=== PATIENT | female | born 1980 | race Two or more races ===

== ENCOUNTER 2024-06-14 12:21 | Emergency (ER) | payer MEDICAID, OTHER ==
[~2024-06-14] VITALS: Ht 165.1 cm; Wt 79.3 kg
[2024-06-14] MEDS: ASPirin 81 mg TAB PO ONE (13:02)
--- NOTE | 2024-06-14 13:06 | ED.PDOC ---
History of Present Illness HPI Comments 43F presents to the Er w/ no prior Hx associated to the c/c of CP. Pt reports on having Left sided CP which feels like its "pully" and radiates to the back all for the past 2 weeks. Pt states on having a pain type of a 7/10. SHx of C- sectionx3 and Hysterectomy. Social Hx of occasional alcohol use, but denies tobacco and substance use. Denies chills, fever, N/V/D, SOB, or other associated symptom's, modifiers, or recent injuries or sick contact at this time. Chief Complaint: Abdominal Pain Time Seen by MD: 12:45 Primary Care Provider: rosalva Reviewed Notes: Nurses Notes, Medications, Allergies (No allergies to medications) Allergies: Coded Allergies: Penicillins (Verified Allergy, Mild, 06/14/24) Information Source: Patient Mode of Arrival: Ambulatory Severity: Moderate Timing: Weeks Duration: Since onset Prehospital treatment: None Associated signs and symptoms Generalized weakness, atypical chest pain Past Medical History PAST MEDICAL HISTORY: Denies Surgical History: (x3), Hysterectomy PARAGLIDING INSTRUCTOR History: No Pertinent PARAGLIDING INSTRUCTOR History Family History Family History: Reviewed,noncontributory to illness, Family hx of DM, Family hx of heart aminata Social History Smoker: Non-Smoker Alcohol: Occasionally Drugs: Denies Drug Use Lives In: Home Constitutional: denies: chills, diaphoresis, fatigue, fever, malaise, sweats, weakness, others EENTM: denies: blurred vision, double vision, ear bleeding, ear discharge, ear drainage, ear pain, ear ringing, eye pain, eye redness, hearing loss, mouth pain, mouth swelling, nasal discharge, nose bleeding, nose congestion, nose pain, photophobia, tearing, throat pain, throat swelling, voice changes, others Respiratory: denies: cough, hemoptysis, orthopnea, SOB at rest, shortness of breath, SOB with excertion, stridor, wheezing, others Cardiovascular: reports: chest pain; denies: dizzy spells, diaphoresis, Dyspnea on exertion, edema, irregular heart beat, left arm pain, lightheadedness, palpitations, PND, syncope, others Gastrointestinal: denies: abdomen distended, abdominal pain, blood streaked bowels, constipated, diarrhea, dysphagia, difficulty swallowing, hematemesis, melena, nausea, poor appetite, poor fluid intake, rectal bleeding, rectal pain, vomiting, others Genitourinary: denies: abnormal vagina bleeding, burning, dyspareunia, dysuria, flank pain, frequency, hematuria, incontinence, pain, , vagina discharge, urgency, others Neurological: denies: dizziness, fainting, headache, left sided numbness, left sided weakness, numbness, paresthesia, pre-existing deficit, right sided numbness, right sided weakness, seizure, speech problems, tingling, tremors, weakness, others Musculoskeletal: reports: back pain; denies: gout, joint pain, joint swelling, muscle pain, muscle stiffness, neck pain, others Integumetry: denies: bruises, change in color, change in hair/nails, dryness, laceration, lesions, lumps, rash, wounds, others Allergic/Immunocompromised: denies: Difficulty Healing, Frequent Infections, Hives, Itching, others Hematologic/Lymphatic: denies: anemia, blood clots, easy bleeding, easy bruising, swollen glands, others Endocrine: denies: excessive hunger, excessive sweating, excessive thirst, excessive urination, flushing, intolerance to cold, intolerance to heat, unexplained weight gain, unexplained weight loss, others Psychiatric: denies: anxiety, bipolar disorder, depression, hopeless, panic disorder, schizophrenia, sleepless, suicidal, others All Other Systems: Reviewed and Negative Physical Exam General Appearance: No Apparent Distress HEENT: Normal ENT Inspection, Pharynx Normal, TMs Normal Neck: Full Range of Motion, Non-Tender, Normal, Normal Inspection Respiratory: Lungs Clear, No Accessory Muscle Use, No Respiratory Distress, Normal Breath Sounds, Other (There is some tenderness to the left chest area) Cardiovascular: No Edema, No JVD, No Murmur, No Gallop, Normal Peripheral Pulses, Regular Rate/Rhythm Breast Exam: Deferred Gastrointestinal: No Organomegaly, Non Tender, No Pulsatile Mass, Normal Bowel Sounds, Soft Genitalia: Deferred Pelvic: Deferred Rectal: Deferred Extremities: No calf tenderness, Normal capillary refill, Normal inspection, Normal range of motion, Non-tender, No pedal edema Musculoskeletal : Apperance: Normal Neurologic: Alert, animal laboratory technician II-XII nml as Tested, No Motor Deficits, Normal Affect, Normal Mood, No Sensory Deficits Cerebellar Function: Normal Reflexes: Normal Skin: Dry, Normal Color, Warm Lymphatic: No Adenopathy Was a procedure done? Was a procedure done?: No EKG EKG : Pulse Rate (adult): 118 [place]: Normal Cardiac Rhythm: ST Block: None Hypertrophy: None ST: Normal Differential Dx Considerations may include: Musculoskeletal chest pain, pneumothorax, ACS, [place] X-Ray, Labs, Meds, VS Vital Signs Date Time Temp Pulse Resp B/P (MAP) Pulse Ox O2 Delivery O2 Flow Rate FiO2 06/14/24 13:28 114 17 97 Room Air 06/14/24 13:28 97.9 114 17 137/92 (107) 97 97.9 06/14/24 13:07 118 06/14/24 12:45 118 06/14/24 12:42 98.3 130 20 155/85 (108) 98 Lab Test 06/14/24 14:08 06/14/24 13:47 06/14/24 13:08 Range/Units Troponin I High Sensitivity < 3 L < 3 L </=34 ng/L Urine Color Yellow Yellow Urine Clarity Turbid H Clear Urine pH 6.0 5.0-9.0 Urine Specific [place] 1.028 1.001-1.035 Urine Protein Trace H Negative Urine Ketones Negative Negative Urine Blood Negative Negative /uL Urine Nitrite Negative Negative Urine Bilirubin Negative Negative Urine Urobilinogen 3 H Negative mg/dL Urine Leukocyte Esterase Negative Negative /uL Urine RBC 6 0 - 4 /hpf Urine Microscopic WBC 2 0-5 /HPF Urine Squamous Epithelial Cells Mod <5 /hpf Urine Bacteria None seen None Seen /hpf Urine Mucus Few None Seen Urine Glucose Normal Normal mg/dL White Blood Count 7.3 4.4-10.8 10^3/uL Red Blood Count 6.10 H 4.0-5.20 10^6/uL Hemoglobin 13.3 12.2-16.2 g/dL Hematocrit 42.1 36.0-46.0 % Mean Corpuscular Volume 69.0 L 80.0-100.0 fL Mean Corpuscular Hemoglobin 21.8 L 28.0-32.0 pg Mean Corpuscular Hemoglobin Concent 31.6 L 32.0-36.0 g/dL Red Cell Distribution Width 15.7 H 11.8-14.3 % Platelet Count 306 140-450 10^3/uL Mean Platelet Volume 10.1 6.9-10.8 fL Neutrophils (%) (Auto) 59.6 37.0-80.0 % Lymphocytes (%) (Auto) 34.5 10.0-50.0 % Monocytes (%) (Auto) 4.1 0.0-12.0 % Eosinophils (%) (Auto) 1.4 0.0-7.0 % Basophils (%) (Auto) 0.4 0.0-2.0 % Neutrophils # (Auto) 4.3 1.6-8.6 10 ^3/uL Lymphocytes # (Auto) 2.5 0.4-5.4 10 ^3/uL Monocytes # (Auto) 0.3 0-1.3 10 ^3/uL Eosinophils # (Auto) 0.1 0-0.8 10 ^3/uL Basophils # (Auto) 0 0-0.2 10 ^3/uL Nucleated Red Blood Cells 0.2 % D-Dimer, Quantitative 0.28 0.0-0.49 mg/L FEU Sodium Level 140 136-145 mmol/L Potassium Level 3.6 3.5-5.1 mmol/L Chloride Level 105 98-107 mmol/L Carbon Dioxide Level 27 20-31 mmol/L Anion Gap 8 5-15 Blood Urea Nitrogen 8 L 9-23 mg/dL Creatinine 0.87 0.550-1.02 mg/dL Glomerular Filtration Rate Calc 84 >90 mL/min BUN/Creatinine Ratio 9.2 L 10.0-20.0 Serum Glucose 83 74-106 mg/dL Calcium Level 10.3 8.7-10.4 mg/dL Current Medications Medications (Trade) Dose Ordered Sig/Mi Route Start Time Stop Time Status Last Admin Aspirin 162 mg ONCE ONCE PO 06/14/24 13:00 06/14/24 13:01 DC 06/14/24 13:02 The patient's CBC is within normal limits The chemistry panel is within normal limits The urine test is negative for infection The troponin level x2 is negative The patient was being discharged and will follow up primary care doctor The patient will return to the emergency department's condition worsens. Images Reviewed?: Images reviewed and evaluated by me Time of 1ST Reevaluation: 13:15 Reevaluation 1ST: Unchanged Patient Education/Counseling: Diagnosis, Treatment, Prognosis, Need For Follow Up Family Education/Counseling: No Family Present Departure 1 Departure Time of Disposition: 15:55 Impression: Primary Impression: Musculoskeletal pain Disposition: 01 HOME / SELF CARE / HOMELESS Condition: Fair Discharged With: Self Critical Care Note Critical Care Time?: No Stability Stability form required: No Heart Score Heart Score: Heart Score Response (Comments) Value History Slightly Suspicious 0 EKG Normal 0 Age <45 0 Risk Factors N/A 0 Troponin N/A 0 Total 0 I personally scribed for HIEU GUDINO MD ([email or web address]) on 06/14/24 at 13:06. Electronically submitted by Brendan Sun ([email or web address]). I personally scribed for HIEU GUDINO MD ([email or web address]) on 06/14/24 at 13:07. Electronically submitted by Brendan Sun ([email or web address]). HIEU GUDINO MD Jun 14, 2024 13:06
--- NOTE | 2024-06-14 13:08 | DVH ---
EXAM: XY CHEST TWO VIEWS ROUTINE CLINICAL HISTORY: CP COMPARISON: None TECHNIQUE: Frontal and lateral view of the chest was obtained FINDINGS: Lines and Tubes: None Lungs: No focal consolidation. Pleura: No effusion. No pneumothorax. Cardiomediastinal contours: Unremarkable Pulmonary vasculature: Within normal limits. Bones: No acute osseous abnormality. IMPRESSION: 1. No acute cardiopulmonary disease. HS:Y
[2024-06-14 13:49] LABS: Urine Bacteria None Seen /hpf (None Seen)
[2024-06-14 13:53] LABS: Basophils # (auto) 0 10 ^3/uL (0-0.2); Basophils % (auto) 0.4 % (0.0-2.0); Eosinophils # (auto) 0.1 10 ^3/uL (0-0.8); Eosinophils % (auto) 1.4 % (0.0-7.0); Hematocrit 42.1 % (36.0-46.0); Hemoglobin 13.3 g/dL (12.2-16.2); Lymphocytes # (auto) 2.5 10 ^3/uL (0.4-5.4); Lymphocytes % (auto) 34.5 % (10.0-50.0); Mean Corpuscular Hemoglobin 21.8 pg (28.0-32.0); Mean Corpuscular Hgb Conc. 31.6 g/dL (32.0-36.0); Monocytes # (auto) 0.3 10 ^3/uL (0-1.3); Monocytes % (auto) 4.1 % (0.0-12.0); Neutrophils # (auto) 4.3 10 ^3/uL (1.6-8.6); Neutrophils % (auto) 59.6 % (37.0-80.0); Nucleated Red Blood Cells % 0.2 %; Platelet Count (auto) 306 10^3/uL (140-450); Red Cell Distribution Width 15.7 % (11.8-14.3); White Blood Cell 7.3 10^3/uL (4.4-10.8)
[2024-06-14 14:00] LABS: Chloride 105 mmol/L (98-107); Potassium 3.6 mmol/L (3.5-5.1); Sodium 140 mmol/L (136-145)
[2024-06-14 14:01] LABS: Anion Gap 8 (5-15); Calcium 10.3 mg/dL (8.7-10.4); Carbon Dioxide 27 mmol/L (20-31)
[2024-06-14 14:06] LABS: BUN/Creatinine Ratio 9.2 (10.0-20.0); Blood Urea Nitrogen 8 mg/dL (9-23); Glucose 83 mg/dL (74-106)
[2024-06-14 14:15] LABS: Urine Blood Negative /uL (Negative); Urine Clarity Turbid (Clear); Urine Color Yellow (Yellow); Urine Mucus FEW (None Seen); Urine Protein, UAD TRACE (Negative); Urine Specific Gravity 1.028 (1.001-1.035); Urine Squamous Epithelial Cell MOD /hpf (<5); Urine Urobilinogen 3 mg/dL (Negative); Urine WBC 2 /HPF (0-5)
[2024-06-14 17:25] VITALS: BP 158/73; PULSE 100; RESP 16; TEMP 97.8; O2SAT 100
--- NOTE | 2024-06-18 14:33 | ECG ---
[facility] Test Date: 2024-06-14 Test Time: 12:45:24 Pat Name: RADHA RENTERIA Department: ER Room: Gender: F Academic Affairs Vice President: MICHAEL : 1980 Requested By: HIEU GUDINO Order Number: [id number] Reading MD: Measurements Intervals [place] Rate: 118 P: 89 SD: 130 QRS: 81 QRSD: 74 T: -7 QT: 293 QTc: 411 Interpretive Statements Sinus tachycardia Borderline repolarization abnormality Baseline wander in lead(s) V4,V5 Please click the below link to view image of tracing.
== END 2024-06-14 17:34 | disposition home or self-care (01) ==
LOC: ER 12:21
DX: R07.89 Other chest pain (principal); Z90.710 Acquired absence of both cervix and uterus; Z98.890 Other specified postprocedural states; Z88.0 Allergy status to penicillin
CPT/HCPCS: 36415; 71046; 80048; 81001; 84484; 85025; 85379; 93005

== ENCOUNTER 2024-10-06 12:26 | Emergency (ER) | payer MEDICAID ==
[~2024-10-06] VITALS: Ht 165.1 cm; Wt 77.5 kg
--- NOTE | 2024-10-06 12:41 | ED.PDOC ---
GI ASSESSMENT HPI Comments 44 year old female presents to the ED with a chief complaint of abdominal pain onset 5 days. Patient has been experiencing abdominal pain, RUQ radiating to epigastric region as well as nausea, vomiting, diarrhea. Denies any PMHx as well as recent travel, chest pain, shortness of breath, cough, congestion, sore throat, fevers, chills, dysuria, hematuria, dizziness, headache. No other symptoms or modifying factors present at this time. Chief Complaint: Nausea/Vomiting Time Seen by MD: 12:35 Primary Care Provider: rosalva Reviewed Notes: Medications, Allergies Allergies: Coded Allergies: Penicillins (Verified Allergy, Mild, 06/14/24) Information Source: Patient Timing: Days Duration: Since onset Prehospital treatment: None Quality: Sharp Severity: Moderate Recent: None Recent Hx of: None Pain Location: Epigastric, RUQ Modifying Factors: Nothing Associated sign and symptoms: Nausea, Vomiting, Diarrhea, Abdominal Pain Past Medical History PAST MEDICAL HISTORY: Denies Surgical History: , Hysterectomy RECREATIONAL FACILITIES MOTEL MANAGER History: No Pertinent RECREATIONAL FACILITIES MOTEL MANAGER History Family History Family History: Reviewed,noncontributory to illness, Family hx of DM, Family hx of heart aminata Social History Smoker: Non-Smoker Alcohol: Occasionally Drugs: Denies Drug Use Lives In: Home Constitutional: denies: chills, diaphoresis, fatigue, fever, malaise, sweats, weakness, others EENTM: denies: blurred vision, double vision, ear bleeding, ear discharge, ear drainage, ear pain, ear ringing, eye pain, eye redness, hearing loss, mouth pain, mouth swelling, nasal discharge, nose bleeding, nose congestion, nose pain, photophobia, tearing, throat pain, throat swelling, voice changes, others Respiratory: denies: cough, hemoptysis, orthopnea, SOB at rest, shortness of breath, SOB with excertion, stridor, wheezing, others Cardiovascular: denies: chest pain, dizzy spells, diaphoresis, Dyspnea on exertion, edema, irregular heart beat, left arm pain, lightheadedness, palpitations, PND, syncope, others Gastrointestinal: reports: abdominal pain, diarrhea, nausea, vomiting; denies: abdomen distended, blood streaked bowels, constipated, dysphagia, difficulty swa llowing, hematemesis, melena, poor appetite, poor fluid intake, rectal bleeding, rectal pain, others Genitourinary: denies: abnormal vagina bleeding, burning, dyspareunia, dysuria, flank pain, frequency, hematuria, incontinence, pain, , vagina discharge, urgency, others Neurological: denies: dizziness, fainting, headache, left sided numbness, left sided weakness, numbness, paresthesia, pre-existing deficit, right sided numbness, right sided weakness, seizure, speech problems, tingling, tremors, weakness, others Musculoskeletal: denies: back pain, gout, joint pain, joint swelling, muscle pain, muscle stiffness, neck pain, others Integumetry: denies: bruises, change in color, change in hair/nails, dryness, laceration, lesions, lumps, rash, wounds, others Allergic/Immunocompromised: denies: Difficulty Healing, Frequent Infections, Hives, Itching, others Hematologic/Lymphatic: denies: anemia, blood clots, easy bleeding, easy bruising, swollen glands, others Endocrine: denies: excessive hunger, excessive sweating, excessive thirst, excessive urination, flushing, intolerance to cold, intolerance to heat, un explained weight gain, unexplained weight loss, others Psychiatric: denies: anxiety, bipolar disorder, depression, hopeless, panic disorder, schizophrenia, sleepless, suicidal, others All Other Systems: Reviewed and Negative Physical Exam General Appearance: Normal HEENT: Normal ENT Inspection, Pharynx Normal, TMs Normal Neck: Full Range of Motion, Non-Tender, Normal, Normal Inspection Respiratory: Chest Non-Tender, Lungs Clear, No Accessory Muscle Use, No Respiratory Distress, Normal Breath Sounds Cardiovascular: No Edema, No JVD, No Murmur, No Gallop, Tachycardia Breast Exam: Deferred Gastrointestinal: No Organomegaly, Tenderness (Mild, to RUQ radiating to epigastric. diminished bowel sounds) Genitalia: Deferred Pelvic: Deferred Rectal: Deferred Extremities: No calf tenderness, Normal capillary refill, Normal inspection, Normal range of motion, Non-tender, No pedal edema Musculoskeletal : Apperance: Normal Neurologic: Alert, packager hand II-XII nml as Tested, No Motor Deficits, Normal Affect, Normal Mood, No Sensory Deficits Cerebellar Function: Normal Reflexes: Normal Skin: Dry, Normal Color, Warm Lymphatic: No Adenopathy Was a procedure done? Was a procedure done?: No GI differential Dx Differential Diagnosis: Appendicitis, Complete , Incomplete , Inevitable , Missed , Threatened , Abruptio placentae, Bowel Obstruction, Constipation, Diverticular disease, Dysmenorrhea, Ectopic , Gastritis/PUD, Gastroenteritis, GI hemorrhage, Hernia, Hepatitis, Inflammatory BD, Ischemic Bowel, Ovarian cyst/torsion, Urinary Obstruction, UTI, Urolithiasis, , Viral, Impaction, Mass, Stress Ulcer, Kidney Stone X-Ray, Labs, Meds, VS Vital Signs Date Time Temp Pulse Resp B/P (MAP) Pulse Ox O2 Delivery O2 Flow Rate FiO2 10/06/24 14:08 65 16 157/93 10/06/24 13:48 98.4 115 18 157/93 (114) 98 98.4 10/06/24 13:43 12 100 Room Air* 0 21 10/06/24 12:31 98.2 111 16 173/87 (115) 98 98.2 Lab Test 10/06/24 12:55 10/06/24 12:35 Range/Units White Blood Count 5.7 4.4-10.8 10^3/uL Red Blood Count 6.25 H 4.0-5.20 10^6/uL Hemoglobin 13.7 12.2-16.2 g/dL Hematocrit 43.5 36.0-46.0 % Mean Corpuscular Volume 69.7 L 80.0-100.0 fL Mean Corpuscular Hemoglobin 21.9 L 28.0-32.0 pg Mean Corpuscular Hemoglobin Concent 31.4 L 32.0-36.0 g/dL Red Cell Distribution Width 15.1 H 11.8-14.3 % Platelet Count 272 140-450 10^3/uL Mean Platelet Volume 9.4 6.9-10.8 fL Neutrophils (%) (Auto) 45.0 37.0-80.0 % Lymphocytes (%) (Auto) 49.0 10.0-50.0 % Monocytes (%) (Auto) 3.5 0.0-12.0 % Eosinophils (%) (Auto) 1.8 0.0-7.0 % Basophils (%) (Auto) 0.7 0.0-2.0 % Neutrophils # (Auto) 2.6 1.6-8.6 10 ^3/uL Lymphocytes # (Auto) 2.8 0.4-5.4 10 ^3/uL Monocytes # (Auto) 0.2 0-1.3 10 ^3/uL Eosinophils # (Auto) 0.1 0-0.8 10 ^3/uL Basophils # (Auto) 0 0-0.2 10 ^3/uL Nucleated Red Blood Cells 0.1 % Sodium Level 140 136-145 mmol/L Potassium Level 3.2 L 3.5-5.1 mmol/L Chloride Level 106 98-107 mmol/L Carbon Dioxide Level 24 20-31 mmol/L Anion Gap 10 5-15 Blood Urea Nitrogen < 5 L 9-23 mg/dL Creatinine 0.96 0.550-1.02 mg/dL Glomerular Filtration Rate Calc 74 >90 mL/min BUN/Creatinine Ratio 5.2 L 10.0-20.0 Serum Glucose 120 H 74-106 mg/dL Calcium Level 9.2 8.7-10.4 mg/dL Total Bilirubin 0.3 0.2-1.0 mg/dL Aspartate Amino Transferase (AST) 17 <34 U/L Alanine Aminotransferase (ALT) 42 H 7-40 U/L Alkaline Phosphatase 93 46-116 U/L Total Protein 7.6 5.7-8.2 g/dL Albumin 4.4 3.2-4.8 g/dL Lipase 38 12-53 U/L Urine Color Yellow Yellow Urine Clarity Turbid H Clear Urine pH 6.0 5.0-9.0 Urine Specific [place] 1.037 H 1.001-1.035 Urine Protein 1+ H Negative Urine Ketones Negative Negative Urine Blood Trace H Negative /uL Urine Nitrite Negative Negative Urine Bilirubin Negative Negative Urine Urobilinogen Normal Negative mg/dL Urine Leukocyte Esterase Negative Negative /uL Urine RBC 10 0 - 4 /hpf Urine Microscopic WBC 5 0-5 /HPF Urine Squamous Epithelial Cells Mod <5 /hpf Urine Bacteria None seen None Seen /hpf Urine Mucus Few None Seen Urine Glucose Normal Normal mg/dL Urine Test Negative Negative POC Glucose 136 H 70-106 mg/dl Current Medications Medications (Trade) Dose Ordered Sig/Mi Route Start Time Stop Time Status Last Admin Sodium Chloride 1,000 ml @ 1,000 mls/hr Q1H ONCE IV 10/06/24 12:45 10/06/24 13:44 DC 10/06/24 13:39 Ondansetron HCl (Zofran) 4 mg ONCE ONCE IV 10/06/24 12:45 10/06/24 12:47 DC 10/06/24 12:45 Morphine Sulfate 2 mg ONCE ONCE IV 10/06/24 14:15 10/06/24 14:16 DC 10/06/24 14:08 Time of 1ST Reevaluation: 13:05 Reevaluation 1ST: Unchanged Time of 2ND Reevaluation: 14:18 Reevaluation 2ND: Improved Patient Education/Counseling: Diagnosis, Treatment, Prognosis, Need For Follow Up Family Education/Counseling: No Family Present Additional Information The following tests were ordered, and results were reviewed by me: CBC, CMP,LIPASE, UA, PREGUA, CT ABD PEL WO CON I reviewed and agreed with the following test results read by other providers: CT ABD PEL WO CON I discussed treatment and results with medical personnel and: patient Comprehensive systems review obtained and negative except for what is stated in the HPI. pt is feeling better. workup is unremarkable. pt is stable for discharge SEPSIS Sepsis Screen Physician Orders Ct Ab Pel Wo Con-No Oral Or Iv (10/06/24 12:38) Potassium Er Tablet (Klor-Con Tablet) (10/06/24 14:15) Vital Signs Date Time Temp Pulse Resp B/P (MAP) Pulse Ox O2 Delivery O2 Flow Rate FiO2 10/06/24 14:08 65 16 157/93 10/06/24 13:48 98.4 115 18 157/93 (114) 98 98.4 10/06/24 13:43 12 100 Room Air* 0 21 10/06/24 12:31 98.2 111 16 173/87 (115) 98 98.2 Laboratory Tests Test 10/06/24 12:55 White Blood Count 5.7 10^3/uL (4.4-10.8) Medications Medications Dose Ordered Sig/Mi Route Start Time Stop Time Status Last Admin Dose Admin Morphine Sulfate 2 mg ONCE ONCE IV 10/06/24 14:15 10/06/24 14:16 DC 10/06/24 14:08 Ondansetron HCl 4 mg ONCE ONCE IV 10/06/24 12:45 10/06/24 12:47 DC 10/06/24 12:45 Sodium Chloride 1,000 ml @ 1,000 mls/hr Q1H ONCE IV 10/06/24 12:45 10/06/24 13:44 DC 10/06/24 13:39 Departure 1 Departure Time of Disposition: 14:19 Impression: Primary Impression: Abdominal pain Qualified Codes: R10.11 - Right upper quadrant pain Disposition: 01 HOME / SELF CARE / HOMELESS Condition: Good e-Prescriptions Ondansetron Odt 4MG Tab (ZOFRAN PO) 4 Mg Tb 4 MG PO Q4HP PRN for 2 Days, #10 TAB ODT TAB-DISSOLVE IN MOUTH, THEN SWALLOW Prov: RAMIN WOODSON MD 10/06/24 Discharged With: Self Critical Care Note Critical Care Time?: No Stability Stability form required: No I personally scribed for RAMIN WOODSON MD ([email or web address]) on 10/06/24 at 12:41. Electronically submitted by Carol Bains ([email or web address]). I personally scribed for RAMIN WOODSON MD ([email or web address]) on 10/06/24 at 12:43. Electronically submitted by Carol Bains ([email or web address]). RAMIN WOODSON MD Oct 06, 2024 12:41
[2024-10-06] MEDS: ONDANSETRON HCL 4 MG/2 ML VIAL IV ONE (12:45)
[2024-10-06 12:49] LABS: Urine Bacteria None Seen /hpf (None Seen)
[2024-10-06 12:56] LABS: Urine Blood TRACE /uL (Negative); Urine Clarity Turbid (Clear); Urine Color Yellow (Yellow); Urine Mucus FEW (None Seen); Urine Protein, UAD 1+ (Negative); Urine Specific Gravity 1.037 (1.001-1.035); Urine Squamous Epithelial Cell MOD /hpf (<5); Urine Urobilinogen Normal (Negative); Urine WBC 5 /HPF (0-5)
[2024-10-06 13:08] LABS: Basophils # (auto) 0 10 ^3/uL (0-0.2); Eosinophils # (auto) 0.1 10 ^3/uL (0-0.8); Hemoglobin 13.7 g/dL (12.2-16.2); Lymphocytes # (auto) 2.8 10 ^3/uL (0.4-5.4); Mean Corpuscular Volume 69.7 fL (80.0-100.0); Monocytes # (auto) 0.2 10 ^3/uL (0-1.3); Nucleated Red Blood Cells % 0.1 %; White Blood Cell 5.7 10^3/uL (4.4-10.8)
[2024-10-06 13:10] LABS: Basophils % (auto) 0.7 % (0.0-2.0); Eosinophils % (auto) 1.8 % (0.0-7.0); Hematocrit 43.5 % (36.0-46.0); Mean Corpuscular Hemoglobin 21.9 pg (28.0-32.0); Mean Corpuscular Hgb Conc. 31.4 g/dL (32.0-36.0); Monocytes % (auto) 3.5 % (0.0-12.0); Neutrophils # (auto) 2.6 10 ^3/uL (1.6-8.6); Platelet Count (auto) 272 10^3/uL (140-450); Red Blood Cells 6.25 10^6/uL (4.0-5.20); Red Cell Distribution Width 15.1 % (11.8-14.3)
[2024-10-06 13:23] LABS: Albumin 4.4 g/dL (3.2-4.8); Alkaline Phosphatase 93 U/L (46-116); Anion Gap 10 (5-15); Aspartate Aminotransferase 17 U/L (<34); Calcium 9.2 mg/dL (8.7-10.4); Carbon Dioxide 24 mmol/L (20-31); Chloride 106 mmol/L (98-107); Lipase 38 U/L (12-53); Sodium 140 mmol/L (136-145); Total Protein 7.6 g/dL (5.7-8.2)
[2024-10-06] MEDS: SODIUM CHLORIDE 0.9% 1,000 ML IV ONE (13:39)
[2024-10-06 13:43] VITALS: RESP 12; O2SAT 100
--- NOTE | 2024-10-06 13:49 | DVH ---
CT CT AB PEL WO CON-NO ORAL OR IV INDICATION: abdominal pain EXAM DATE: 10/06/2024 12:54 PM COMPARISON: None RADIATION DOSE: CTDIvol: 9.55 mGy, DLP: 506.24 mGy*cm PROCEDURE: Helical CT images were obtained of the abdomen and pelvis without IV contrast Sagittal and coronal reconstructions are provided. ORAL CONTRAST: None. ADDITIONAL IMAGES / REFORMATS: None All C T scans at this medical facility are performed using dose modulation techniques as appropriate to a p erformed exam including the following: Automated exposure control was utilized; adjustment of the MA and/or KV according to patient size; and use of iterative reconstruction technique. FINDINGS: LUNG BASE: Normal. LIVER: Normal. GALLBLADDER AND BILIARY TREE: No calcified gallstones. Normal caliber wall. No intra- or extrahepatic biliary ductal dilation. PANCREAS: Normal. SPLEEN: Normal. BOWEL: Normal. Normal appendix. ADRENALS: Normal. KIDNEYS AND URETER: Normal. BLADDER: Normal. REPRODUCTIVE ORGANS: Absent uterus. LYMPH NODES:No lymphadenopathy. PERITONEUM: No ascites or free air. No other fluid collection. VESSELS: Scattered atherosclerotic calcifications are noted. RETROPERITONEUM: Normal. ABDOMINAL WALL: Normal. BONES: Scattered osseous degenerative changes are noted. IMPRESSION: No acute intraabdominal abnormality. Normal appendix.
[2024-10-06] MEDS ORDERED: MORPHINE SULFATE INJ 2 MG/ml SYRG IV ONE (14:00)
[2024-10-06 14:01] LABS: Glucose 120 mg/dL (74-106); Potassium 3.2 mmol/L (3.5-5.1)
[2024-10-06 14:02] LABS: Alanine Aminotransferase 42 U/L (7-40); BUN/Creatinine Ratio 5.2 (10.0-20.0); Bilirubin, Total 0.3 mg/dL (0.2-1.0); Blood Urea Nitrogen < 5 mg/dL (9-23)
[2024-10-06] MEDS: MORPHINE SULFATE 4 MG/ML SYR/VIAL IV ONE (14:08)
[2024-10-06] MEDS ORDERED: ZOFR4T PO (14:20)
[2024-10-06] MEDS: POTASSIUM CHL 20 Meq TABLET PO ONE (14:49)
[2024-10-06 14:52] VITALS: BP 143/67; PULSE 94; RESP 18; TEMP 97.7; O2SAT 98
== END 2024-10-06 15:03 | disposition home or self-care (01) ==
LOC: ER 12:26
DX: R10.11 Right upper quadrant pain (principal); Z90.710 Acquired absence of both cervix and uterus; Z88.0 Allergy status to penicillin; Z79.899 Other long term (current) drug therapy
CPT/HCPCS: 36415; 74176; 80053; 81001; 81025; 82947; 83690; 85025; 96361; 96374; 96375; 99285; J2270; J2405; J7030; 82962

== ENCOUNTER 2025-01-09 15:23 | Emergency (ER) | payer MEDICAID ==
[~2025-01-09] VITALS: Ht 165.1 cm; Wt 79.2 kg
[~2025-01-09 15:23] MED LIST: ZOFR4T PO
--- NOTE | 2025-01-09 16:03 | ED.PDOC ---
GI ASSESSMENT HPI Comments 44 y/o F, with no prior medical history presents to the ED for CC of abdominal pain due to constipation. Patient states, she has been experiencing right-sided abdominal pain that radiates to her right flank x five days due to what she believes is constipation concerns. Patient states no bowel movement during that time. Patient denies dysuria, vaginal discharge, urinary frequency, fever, nausea, or vomiting. No other symptoms or modifying factors are present at this time. Chief Complaint: Abdominal Pain Time Seen by MD: 15:10 Primary Care Provider: ELLEN Reviewed Notes: Nurses Notes, Medications, Allergies Allergies: Coded Allergies: Penicillins (Verified Allergy, Mild, 06/14/24) Home Meds Active Scripts Docusate Sodium (Colace) 100 Mg Cap, 1 CAP PO BIDP PRN, #20 CAP Prov:KHADAR SNIDER PAC 01/09/25 Lactulose (Lactulose) 10 Gm/15 Ml Kelsi, 10 GM PO BID, #150 ML Prov:KHADAR SNIDER PAC 01/09/25 Ondansetron Odt 4MG Tab (ZOFRAN PO) 4 Mg Tb, 4 MG PO Q4HP PRN for 2 Days, #10 TAB ODT TAB-DISSOLVE IN MOUTH, THEN SWALLOW Prov:RAMIN WOODSON MD 10/06/24 Information Source: Patient Mode of Arrival: Ambulatory Timing: Days Duration: Since onset Prehospital treatment: None Quality: Cramping, Sharp, None Vomitus: None Stool: Other (Constipated) Severity: Moderate Recent: None Recent Hx of: None Pain Location: RUQ, RLQ Modifying Factors: Nothing Associated sign and symptoms: Constipation, Abdominal Pain Past Medical History PAST MEDICAL HISTORY: Denies Surgical History: , Hysterectomy [employer] History: No Pertinent [employer] History Family History Family History: Reviewed,noncontributory to illness, Family hx of DM, Family hx of heart aminata Social History Smoker: Non-Smoker Alcohol: Occasionally Drugs: Denies Drug Use Lives In: Home Constitutional: denies: chills, diaphoresis, fatigue, fever, malaise, sweats, weakness, others EENTM: denies: blurred vision, double vision, ear bleeding, ear discharge, ear drainage, ear pain, ear ringing, eye pain, eye redness, hearing loss, mouth pain, mouth swelling, nasal discharge, nose bleeding, nose congestion, nose pain, photophobia, tearing, throat pain, throat swelling, voice changes, others Respiratory: denies: cough, hemoptysis, orthopnea, SOB at rest, shortness of breath, SOB with excertion, stridor, wheezing, others Cardiovascular: denies: chest pain, dizzy spells, diaphoresis, Dyspnea on exertion, edema, irregular heart beat, left arm pain, lightheadedness, palpitations, PND, syncope, others Gastrointestinal: reports: abdominal pain, constipated; denies: abdomen distended, blood streaked bowels, diarrhea, dysphagia, difficulty swallowing, hematemesis, melena, nausea, poor appetite, poor fluid intake, rectal bleeding, rectal pain, vomiting, others Genitourinary: reports: flank pain; denies: abnormal vagina bleeding, burning, dyspareunia, dysuria, frequency, hematuria, incontinence, pain, , vagina discharge, urgency, others Neurological: denies: dizziness, fainting, headache, left sided numbness, left sided weakness, numbness, paresthesia, pre-existing deficit, right sided numbness, right sided weakness, seizure, speech problems, tingling, tremors, weakness, others Musculoskeletal: denies: back pain, gout, joint pain, joint swelling, muscle pain, muscle stiffness, neck pain, others Integumetry: denies: bruises, change in color, change in hair/nails, dryness, laceration, lesions, lumps, rash, wounds, others Allergic/Immunocompromised: denies: Difficulty Healing, Frequent Infections, Hives, Itching, others Hematologic/Lymphatic: denies: anemia, blood clots, easy bleeding, easy bruising, swollen glands, others Endocrine: denies: excessive hunger, excessive sweating, excessive thirst, excessive urination, flushing, intolerance to cold, intolerance to heat, unexplained weight gain, unexplained weight loss, others Psychiatric: denies: anxiety, bipolar disorder, depression, hopeless, panic disorder, schizophrenia, sleepless, suicidal, others All Other Systems: Reviewed and Negative Physical Exam General Appearance: Moderate Distress ([id number] distress due to constipation concerns.), Normal HEENT: Normal ENT Inspection, Pharynx Normal, TMs Normal Neck: Full Range of Motion, Non-Tender, Normal, Normal Inspection Respiratory: Chest Non-Tender, Lungs Clear, No Accessory Muscle Use, No Respiratory Distress, Normal Breath Sounds Cardiovascular: No Edema, No JVD, No Murmur, No Gallop, Normal Peripheral Pulses, Regular Rate/Rhythm Breast Exam: Deferred Gastrointestinal: Other (Diffuse right-sided lower quadrant and upper quadrant tenderness to palpation. Patient states the pain radiates towards her right flank region. Difficult to assess due to body habitus. No pulsatile masses.) Genitalia: Deferred Pelvic: Deferred Rectal: Deferred Extremities: No calf tenderness, Normal capillary refill, Normal inspection, Normal range of motion, Non-tender, No pedal edema Neurologic: Alert, No Motor Deficits, Normal Affect, Normal Mood, No Sensory Deficits Cerebellar Function: NOT DONE Reflexes: NOT DONE Skin: Dry, Normal Color, Warm Lymphatic: No Adenopathy Was a procedure done? Was a procedure done?: No GI differential Dx Differential Diagnosis: Constipation, Impaction X-Ray, Labs, Meds, VS Vital Signs Date Time Temp Pulse Resp B/P (MAP) Pulse Ox O2 Delivery O2 Flow Rate FiO2 01/09/25 20:34 97.6 96 18 146/88 (107) 99 97.6 01/09/25 15:24 98.2 137 18 147/86 99 98.2 Lab Test 01/09/25 23:20 Range/Units White Blood Count 9.0 4.4-10.8 10^3/uL Red Blood Count 5.78 H 4.0-5.20 10^6/uL Hemoglobin 13.0 12.2-16.2 g/dL Hematocrit 41.2 36.0-46.0 % Mean Corpuscular Volume 71.3 L 80.0-100.0 fL Mean Corpuscular Hemoglobin 22.4 L 28.0-32.0 pg Mean Corpuscular Hemoglobin Concent 31.5 L 32.0-36.0 g/dL Red Cell Distribution Width 15.0 H 11.8-14.3 % Platelet Count 290 140-450 10^3/uL Mean Platelet Volume 8.6 6.9-10.8 fL Neutrophils (%) (Auto) 54.9 37.0-80.0 % Lymphocytes (%) (Auto) 40.3 10.0-50.0 % Monocytes (%) (Auto) 3.2 0.0-12.0 % Eosinophils (%) (Auto) 1.2 0.0-7.0 % Basophils (%) (Auto) 0.4 0.0-2.0 % Neutrophils # (Auto) 5.0 1.6-8.6 10 ^3/uL Lymphocytes # (Auto) 3.6 0.4-5.4 10 ^3/uL Monocytes # (Auto) 0.3 0-1.3 10 ^3/uL Eosinophils # (Auto) 0.1 0-0.8 10 ^3/uL Basophils # (Auto) 0 0-0.2 10 ^3/uL Nucleated Red Blood Cells 0.1 % Sodium Level 138 136-145 mmol/L Potassium Level 3.5 3.5-5.1 mmol/L Chloride Level 104 98-107 mmol/L Carbon Dioxide Level 24 20-31 mmol/L Anion Gap 10 5-15 Blood Urea Nitrogen 8 L 9-23 mg/dL Creatinine 0.83 0.550-1.02 mg/dL Glomerular Filtration Rate Calc 89 >90 mL/min BUN/Creatinine Ratio 9.6 L 10.0-20.0 Serum Glucose 77 74-106 mg/dL Calcium Level 9.2 8.7-10.4 mg/dL Lipase 38 12-53 U/L Current Medications Medications (Trade) Dose Ordered Sig/Mi Route Start Time Stop Time Status Last Admin Lactulose 30 ml ONCE ONCE PO 01/09/25 15:45 01/09/25 15:46 DC 01/09/25 16:27 Acetaminophen (Tylenol Tablet) 1,000 mg ONCE ONCE PO 01/09/25 16:30 01/09/25 16:31 DC 01/09/25 17:55 Polyethylene Glycol/ Electrolytes (Golytely) 1 kit ONCE ONCE PO 01/09/25 19:15 01/09/25 19:16 DC 01/09/25 19:[address] [address] Ph: [phone] DIAGNOSTIC IMAGING Diagnostic Imaging Report : [id number] Signed PATIENT: RADHA RENTERIACCT: [id number] UNIT: [id number] : 1980 LOC: ER ROOM / BED: / AGE / SEX: 44 / F ADM STATUS: REG ER SERVICE 3700 ORDERING PHYSICIAN: KHADAR SNIDER PAC PROCEDURE(s): KUB - KUB ABDOMEN SINGLE VIEW REASON: Constipation ORDER NUMBER(s): [id number], ACCESSION NUMBER(s): [id number] ABDOMEN, (KUB) ONE VIEW REASON FOR EXAM: Constipation COMPARISON: CT ABD/PEL on DOS: 08/27/22, US ABDOMEN COMPLETE on DOS: 08/27/22 TECHNIQUE: A single view of the abdomen is obtained. FINDINGS: The bowel gas pattern is nonobstructive. The colonic stool burden is small to moderate. There is no evidence of pneumoperitoneum. No acute osseous abnormality is identified. IMPRESSION: Small to moderate colonic stool burden. Correlate clinically for constipation. ATED BY: WILLIAM HIGGINBOTHAM MD DICTATED DATE/TIME: 01/09/251612 SIGNED BY: WILLIAM HIGGINBOTHAM MD SIGNED DATE/TIME: 01/09/251612 CC: X-Ray, Labs, Meds, VS Comment All studies performed in the ED were evaluated by me personally. KUB confirmed a bflj-sk-drarbkix stool burden without any signs of impaction were SBO. Patient initially received lactulose and a Fleet enema. Attempts were made to pass stool without success. Eventually, patient was given GoLYTELY to facilitate a bowel movement. Patient utilize half the GoLYTELY, but was unable to pass stool. Patient continued to complain of epigastric and right-sided flank pain therefore, additional studies were run that were unremarkable for any pancreatic involvement or systemic concerns. I attempted to locate the patient in the lobby to notify her of the laboratory findings, but it appears the patient has eloped from the facility. Time of 1ST Reevaluation: 00:50 Reevaluation 1ST: Improved Consultation: PCP Patient Education/Counseling: Diagnosis, Treatment Family Education/Counseling: Diagnosis, Treatment, No Family Present SEPSIS Sepsis Screen Date sepsis recognized/suspect: Jan 09, 2025 Time Sepsis recognized/suspect: 1524 Recent Procedure: No On Antibiotic Therapy: No Respiratory Rate >20: No Heart Rate >90: Yes Temp<36 C (96.8 F) or >38.3 C: No SBP <90 or MAP <65 mmHG: No New Acute Mental Status Change: No Is the patient on CPAP, BIPAP,: No Physician Orders Kub Abdomen Single View (01/09/25 15:42) Vital Signs Date Time Temp Pulse Resp B/P (MAP) Pulse Ox O2 Delivery O2 Flow Rate FiO2 01/09/25 20:34 97.6 96 18 146/88 (107) 99 97.6 01/09/25 15:24 98.2 137 18 147/86 99 98.2 Laboratory Tests Test 01/09/25 23:20 White Blood Count 9.0 10^3/uL (4.4-10.8) Medications Medications Dose Ordered Sig/Mi Route Start Time Stop Time Status Last Admin Dose Admin Acetaminophen 1,000 mg ONCE ONCE PO 01/09/25 16:30 01/09/25 16:31 DC 01/09/25 17:55 Lactulose 30 ml ONCE ONCE PO 01/09/25 15:45 01/09/25 15:46 DC 01/09/25 16:27 Polyethylene Glycol/ Electrolytes 1 kit ONCE ONCE PO 01/09/25 19:15 01/09/25 19:16 DC 01/09/25 19:32 Departure 1 Departure Time of Disposition: 22:40 Impression: Primary Impression: Constipation Disposition: LEFT AWOL/ELOPED Condition: Stable Additional Instructions: Advise utilizing medication until the patient can establish a healthy bowel pattern. Patient should always be aware of hydration levels as well as introducing more fiber based content into her diet. e-Prescriptions Docusate Sodium (Colace) 100 Mg Cap 1 CAP PO BIDP PRN, #20 CAP Prov: KHADAR SNIDER PAC 01/09/25 Lactulose (Lactulose) 10 Gm/15 Ml Kelsi 10 GM PO BID, #150 ML Prov: KHADAR SNIDER PAC 01/09/25 Discharged With: Self, Friend Critical Care Note Critical Care Time?: No Stability Stability form required: No Heart Score Heart Score: Heart Score Response (Comments) Value History N/A 0 EKG N/A 0 Age N/A 0 Risk Factors N/A 0 Troponin N/A 0 Total 0 I personally scribed for KHADAR SNIDER PAC ([email or web address]) on 01/09/25 at 16:03. Electronically submitted by Dot Vanegas ([email or web address]). I personally scribed for KHADAR SNIDER PAC ([email or web address]) on 01/09/25 at 16:18. Electronically submitted by Dot Vanegas ([email or web address]). KHADAR SNIDER PAC Jan 09, 2025 16:03
--- NOTE | 2025-01-09 16:16 | DVH ---
ABDOMEN, (KUB) ONE VIEW REASON FOR EXAM: Constipation COMPARISON: CT ABD/PEL on DOS: 08/27/22, US ABDOMEN COMPLETE on DOS: 08/27/22 TECHNIQUE: A single view of the abdomen is obtained. FINDINGS: The bowel gas pattern is nonobstructive. The colonic stool burden is small to moderate. Th ere is no evidence of pneumoperitoneum. No acute osseous abnormality is identified. IMPRESSION: Small to moderate colonic stool burden. Correlate clinically for constipation.
[2025-01-09] MEDS: LACTULOSE 20Gm/30ML SOLN PO ONE (16:27)
[2025-01-09] MEDS: FLEET ENEMA(ADULT) 135 ML PR ONE (17:55)
[2025-01-09] MEDS: ACETAMINOPHEN 325 MG TAB PO ONE (17:55)
[2025-01-09] MEDS: GOLYTELY 4L KIT PO ONE (19:32)
[2025-01-09 20:34] VITALS: BP 146/88; PULSE 96; RESP 18; TEMP 97.6; O2SAT 99
[2025-01-09] MEDS ORDERED: DOCU-94 PO (22:42)
[2025-01-09] MEDS ORDERED: LACT10SO3 PO (22:42)
[2025-01-09 23:38] LABS: Hemoglobin 13.0 g/dL (12.2-16.2)
[2025-01-09 23:39] LABS: Hematocrit 41.2 % (36.0-46.0); Mean Corpuscular Hemoglobin 22.4 pg (28.0-32.0); Mean Corpuscular Volume 71.3 fL (80.0-100.0); Nucleated Red Blood Cells % 0.1 %
[2025-01-09 23:47] LABS: Chloride 104 mmol/L (98-107); Potassium 3.5 mmol/L (3.5-5.1); Sodium 138 mmol/L (136-145)
[2025-01-09 23:48] LABS: Anion Gap 10 (5-15); Calcium 9.2 mg/dL (8.7-10.4); Carbon Dioxide 24 mmol/L (20-31)
[2025-01-09 23:53] LABS: BUN/Creatinine Ratio 9.6 (10.0-20.0); Blood Urea Nitrogen 8 mg/dL (9-23); Glucose 77 mg/dL (74-106); Lipase 38 U/L (12-53)
== END 2025-01-09 19:25 | disposition left against medical advice (07) ==
LOC: ER 15:28
DX: F10.90 Alcohol use, unspecified, uncomplicated (principal); Z90.710 Acquired absence of both cervix and uterus; Z88.0 Allergy status to penicillin; Z79.899 Other long term (current) drug therapy; Y90.9 Presence of alcohol in blood, level not specified
CPT/HCPCS: 36415; 74018; 80048; 83690; 85025